=== PATIENT | male | born 1955 | race Two or more races ===

== ENCOUNTER 2017-08-04 11:46 | Inpatient (IN) | payer OTHER ==
[2017-07-29 14:18] LABS: BASOPHILS % (AUTO) 0.7 % (0-1); EOSINOPHILS # (AUTO) 0.2 X10'3 (0-0.9); EOSINOPHILS % (AUTO) 3.5 % (0-6); LYMPHOCYTES % (AUTO) 29.2 % (21-51); MEAN CORPUSCULAR HEMOGLOBIN 32.6 PG (27.0-31.0); MEAN CORPUSCULAR HGB CONC 34.7 % (33.0-36.5); MEAN CORPUSCULAR VOLUME 93.9 FL (78-98); MEAN PLATELET VOLUME 8.5 FL (7.4-10.4); MONOCYTES # (AUTO) 0.4 X10'3 (0-0.9); MONOCYTES % (AUTO) 6.7 % (2-12); NEUTROPHILS % (AUTO) 59.9 % (42-75); PRE OP HEMATOCRIT 49.1 % (42.0-52.0); PRE OP PLATELET COUNT 200 X10'3 (140-440); RED BLOOD COUNT 5.23 X10'6 (4.70-6.10); RED CELL DISTRIBUTION WIDTH 12.8 % (11.5-14.5)
[2017-07-29 14:21] LABS: PRE OP PROTIME 10.7 SECONDS (9.0-12.0)
[2017-07-29 14:36] LABS: ALBUMIN 4.2 G/DL (3.4-5.0); ALBUMIN/GLOBULIN RATIO 1.1 (1.1-1.5); ALKALINE PHOSPHATASE 105 IU/L (46-116); BLOOD UREA NITROGEN 10 MG/DL (7-18); BUN/CREATININE RATIO 9.6 (5.4-32.0); CHLORIDE 104 MMOL/L (99-107); CREATININE 1.04 MG/DL (0.60-1.10); PRE OP ANION GAP 8 (8-16); PRE OP AST 53 U/L (10-37); PRE OP BILIRUB, TOTAL 0.7 MG/DL (0.0-1.0); PRE OP GLUCOSE 100 MG/DL (70-104); PRE OP POTASSIUM 3.7 MMOL/L (3.4-5.1); PRE OP SODIUM 139 MMOL/L (135-145); TOTAL CARBON DIOXIDE 26.8 MMOL/L (24-32); TOTAL PROTEIN 7.9 G/DL (6.4-8.2); eGFR 73 ML/MIN
[2017-07-29 14:37] LABS: PRE OP ALT 84 U/L (30-65)
[2017-08-04] VITALS (14 sets, daily range): BP systolic 95–145; BP diastolic 53–97
[~2017-08-04] VITALS: Ht 172.7 cm; Wt 96.8 kg
[~2017-08-04 11:46] MED LIST: GINK120C PO; LACT1CAP65 PO; PSYL3.4P5 PO; VANCOMYCIN INJ 1000 MG in NORMAL SALINE 250ml IV.SOLN IV ONE; XAL0.005OS EACHEYE; cefazolin/dext.iso 2gm/50ml 50 ML IV ONE; famotidine 20mg tablet PO ONE; ringers solution, lacted 1,000 ML IV SCH; tranexamic acid inj. 950 MG in normal saline 100ml IV soln 90.5 ML IV ONE
[2017-08-04] MEDS ORDERED: ketorolac trometh. 30mg/ml inj. ONE (15:39)
[2017-08-04] MEDS ORDERED: ROPIVAcaine 0.5% (5mg/ml) 30ml vial ONE ×2 (15:39→16:07)
[2017-08-04] MEDS ORDERED: tetracaine 1% (10mg/ml) pres. free inj. ONE (16:08)
[2017-08-04] MEDS ORDERED: fentaNYL/PF 50MCG/1 ML 2ML syringe ONE (16:39)
[2017-08-04] MEDS ORDERED: MIDAZolam 5mg/ml 2ml vial ONE (16:39)
[2017-08-04] MEDS ORDERED: MORPHINE SULFATE/PF 0.5 MG/ML 10ML AMPUL ONE (16:40)
[2017-08-04] MEDS ORDERED: propofol inj 20 ML IV ONE ×3 (17:04→19:57)
[2017-08-04] MEDS ORDERED: naloxone 2mg/2ml inj 2 MG in normal saline 500ml IV soln 500 ML IV PRN (18:00)
[2017-08-04] MEDS ORDERED: proCHLORperazine 10 MG/2 ml inj IV PRN (18:00)
[2017-08-04] MEDS ORDERED: ringers solution, lacted 1,000 ML IV SCH (18:00)
[2017-08-04] MEDS ORDERED: ondansetron/PF 4mg/2ml inj IV PRN ×3 (18:00→20:05)
[2017-08-04] MEDS ORDERED: diphenhydrAMINE 50 mg/ml inj IV PRN (18:00)
[2017-08-04] MEDS ORDERED: morphine 2 MG/ML inj. syringe IV PRN ×2 (18:00)
[2017-08-04] MEDS ORDERED: meperidine/PF 50mg/ml syringe IV PRN ×3 (18:00)
[2017-08-04] MEDS ORDERED: vancomycin 1,000mg inj ONE (18:13)
[2017-08-04] MEDS ORDERED: acetaminophen 325mg tablet PO PRN (20:05)
[2017-08-04] MEDS ORDERED: HYDROmorphone inj. 0.5 MG/0.5 ML DISP.SYRIN IV PRN ×2 (20:05)
[2017-08-04] MEDS ORDERED: oxyCODONE IR 5mg (immed. release) tablet PO PRN ×2 (20:05)
[2017-08-04] MEDS ORDERED: diphenhydrAMINE 25mg capsule PO PRN ×2 (20:05)
[2017-08-04] MEDS ORDERED: magnesium hydroxide 30ml (MOM) UD suspension PO PRN (20:05)
[2017-08-04] MEDS ORDERED: tranexamic acid inj. 950 MG in normal saline 100ml IV soln 100 ML IV ONE (20:05)
[2017-08-04] MEDS ORDERED: bisacodyl 10mg suppository rectal RC PRN (20:05)
[2017-08-04] MEDS: latanoprost 0.005% 2.5ml ophthalmic drops EACHEYE SCH ×2 (21:00→22:05)
[2017-08-04] MEDS ORDERED: sennosides 8.6mg tablet PO SCH (21:00)
[2017-08-04] MEDS: gabapentin 300mg capsule PO SCH (21:19)
[2017-08-04] MEDS: potassium cl 20mEq in 1/2 NS 1,000 ML IV SCH (21:19)
[2017-08-05] MEDS: cefazolin 1gm/NS 100mL 100 ML IV SCH ×2 (00:03→11:22)
[2017-08-05 00:45] VITALS: BP 116/76
[2017-08-05 02:00] VITALS: BP 122/73
[2017-08-05] MEDS: ketorolac tromethamine 15mg/ml inj. IV SCH ×2 (02:00→07:56)
[2017-08-05] MEDS: acetaminophen 325mg tablet PO SCH ×2 (02:00→07:57)
[2017-08-05] MEDS: potassium cl 20mEq in 1/2 NS 1,000 ML IV SCH ×2 (04:51→12:05)
[2017-08-05] MEDS ORDERED: pneumococcal 23-VAL P-sac vacc 25 mcg/0.5ml vial IMVAC ONE (06:45)
[2017-08-05 06:46] LABS: BASOPHILS % (AUTO) 0.1 % (0-1); EOSINOPHILS # (AUTO) 0.1 X10'3 (0-0.9); EOSINOPHILS % (AUTO) 0.9 % (0-6); HEMATOCRIT 44.7 % (42.0-52.0); HEMOGLOBIN 15.8 g/dl (14.0-17.9); LYMPHOCYTES # (AUTO) 0.6 X10'3 (1.1-4.8); LYMPHOCYTES % (AUTO) 10.1 % (21-51); MEAN CORPUSCULAR HEMOGLOBIN 33.1 PG (27.0-31.0); MEAN CORPUSCULAR HGB CONC 35.3 % (33.0-36.5); MEAN CORPUSCULAR VOLUME 93.8 FL (78-98); MEAN PLATELET VOLUME 8.3 FL (7.4-10.4); MONOCYTES # (AUTO) 0.1 X10'3 (0-0.9); MONOCYTES % (AUTO) 1.2 % (2-12); NEUTROPHILS # (AUTO) 5.2 X10'3 (1.8-7.7); NEUTROPHILS % (AUTO) 87.7 % (42-75); PLATELET COUNT 143 X10'3 (140-440); RED BLOOD COUNT 4.76 X10'6 (4.70-6.10); RED CELL DISTRIBUTION WIDTH 12.6 % (11.5-14.5); WHITE BLOOD COUNT 5.9 X10'3 (4.5-11.0)
[2017-08-05 07:08] LABS: ANION GAP 8 (8-16); CHLORIDE 105 MMOL/L (99-107); POTASSIUM 4.4 MMOL/L (3.5-5.1); SODIUM 139 MMOL/L (135-145); TOTAL CARBON DIOXIDE 25.6 MMOL/L (24-32)
[2017-08-05] MEDS: gabapentin 300mg capsule PO SCH (07:56)
[2017-08-05] MEDS ORDERED: vancomycin/NS 1 GM ADD-VANTAGE 250 ML IV SCH (08:00)
[2017-08-05 08:15] VITALS: BP 125/74
[2017-08-05] MEDS ORDERED: aspirin 325mg tablet PO SCH (08:30)
[2017-08-05] MEDS ORDERED: ASPI-1 PO (11:14)
[2017-08-05] MEDS ORDERED: cefazolin 1gm/NS 100mL 100 ML IV SCH (12:00)
[2017-08-06] MEDS ORDERED: celeCOXIB 100mg capsule PO SCH (20:00)
[2017-08-06] MEDS ORDERED: acetaminophen 325mg tablet PO PRN (20:05)
== END 2017-08-05 12:24 | disposition home or self-care (01) | DRG 470 ==
LOC: PAS IN 11:46 → EDSTATUS 13:45 → ORTHO 4S 21:05
PROVIDERS: ADMIT Orthopaedic Surgery; ATTEND Orthopaedic Surgery
PROC: 8E0Y0CZ Robotic Assisted Procedure of Lower Extremity, Open Approach (ICD-10-PCS; 2017-08-04)
PROC: 8E0YXBZ Computer Assisted Procedure of Lower Extremity (ICD-10-PCS; 2017-08-04)
PROC: 0SRD0J9 Replacement of Left Knee Joint with Synthetic Substitute, Cemented, Open Approach (ICD-10-PCS; principal; 2017-08-04 16:36)
DX: M17.32 Unilateral post-traumatic osteoarthritis, left knee (principal); E66.9 Obesity, unspecified; H40.9 Unspecified glaucoma; F17.210 Nicotine dependence, cigarettes, uncomplicated; Z23 Encounter for immunization; Z80.8 Family history of malignant neoplasm of other organs or systems; Z68.32 Body mass index [BMI] 32.0-32.9, adult
CPT/HCPCS: 36415; 80051; 80053; 85025; 85610; 85730; 87070; 90732; 97116; 97162; 97530; A4615; A6255; A6455; A7000; C1713; C1758; C1776; J0690; J1885; J2250; J2274; J2704; J2795; J3010; J3370; J7030; J7120; Q0163